=== PATIENT | female | born 1990 | race Caucasian/White ===

== ENCOUNTER 2018-02-27 05:22 | Inpatient (IN) | payer MEDICAID ==
[~2018-02-27] VITALS: Ht 157.5 cm; Wt 56.8 kg
[2018-02-27 05:36] VITALS: Ht 157.5 cm; Wt 56.8 kg
[2018-02-27 07:52] LABS: BASOPHIL % 0.2 % (0-2); PLATELET COUNT 221 x10^3mcL (130-400); RED CELL DISTRIBUTION WIDTH 12.8 % (11.5-14.5)
[2018-02-27 09:22] LABS: microscopic required? YES; urine erythrocyte NEGATIVE (NEGATIVE)
[2018-02-27 10:42] LABS: microscopic required? NO
[2018-02-27 11:14] LABS: UA SPECIFIC GRAVITY 1.015 (1.005-1.035); urine erythrocyte NEGATIVE (NEGATIVE)
[2018-02-27 13:13] LABS: BASOPHIL % 0.2 % (0-2); PLATELET COUNT 189 x10^3mcL (130-400); RED CELL DISTRIBUTION WIDTH 13.1 % (11.5-14.5)
[2018-02-27 15:11] VITALS: BP 101/54
[2018-02-27 16:13] VITALS: BP 99/51
[2018-02-27 16:28] LABS: AMYLASE 46 U/L (25-115); CALCIUM 7.9 mg/dL (8.5-10.1); CARBON DIOXIDE 21.5 mmol/L (21-32); CHLORIDE SERUM 101 mmol/L (98-107); CREATININE SERUM 0.5 mg/dL (0.6-1.0); GFR1 > 60 mL/min; GLUCOSE SERUM 90 mg/dL (74-106); LIPASE 77 IU/L (73-393); MAGNESIUM 1.7 mg/dL (1.8-2.4); PHOSPHOROUS 2.3 mg/dL (2.5-4.9); POTASSIUM SERUM 3.4 mmol/L (3.5-5.1); SODIUM SERUM 133 mmol/L (136-145)
[2018-02-27 16:32] LABS: CHOLESTEROL 119 mg/dL (<200); CHOLESTEROL/HDL RATIO 1.9; HDL CHOLESTEROL 62 mg/dL (40-60); TRIGLYCERIDES 23 mg/dL (<150)
[2018-02-27 16:33] LABS: T3 TOTAL 0.95 ng/mL
[2018-02-27 17:00] LABS: FREE T4 1.07 ng/dL (0.76-1.46); FREE THYROXINE INDEX 2.2 ug/dL (1.4-4.5); T4(THYROXINE) 6.6 ug/dL (4.7-13.3)
[2018-02-27 17:23] LABS: AMPHETAMINE QUAL UR NONE DETECTED (See below)
[2018-02-27 21:48] VITALS: BP 110/57
[2018-02-28 06:03] VITALS: BP 97/45
[2018-02-28 06:13] LABS: BASOPHIL % 0.1 % (0-2); PLATELET COUNT 188 x10^3mcL (130-400)
[2018-02-28 06:21] LABS: CALCIUM 8.2 mg/dL (8.5-10.1); CARBON DIOXIDE 21.5 mmol/L (21-32); CHLORIDE SERUM 105 mmol/L (98-107); CREATININE SERUM 0.5 mg/dL (0.6-1.0); GFR1 > 60 mL/min; GLUCOSE SERUM 89 mg/dL (74-106); MAGNESIUM 1.9 mg/dL (1.8-2.4); PHOSPHOROUS 2.7 mg/dL (2.5-4.9); POTASSIUM SERUM 3.7 mmol/L (3.5-5.1); SODIUM SERUM 136 mmol/L (136-145)
[2018-02-28 09:23] VITALS: BP 109/54
[2018-02-28 13:42] VITALS: BP 109/54
[2018-02-28 13:51] VITALS: BP 115/68
== END 2018-02-28 16:58 | disposition home or self-care (01) | DRG 566 ==
LOC: ED 05:22 → DU 14:17
PROVIDERS: Emergency Medicine; Family Medicine
DX: O26.891 Other specified pregnancy related conditions, first trimester (principal); E83.39 Other disorders of phosphorus metabolism; R10.30 Lower abdominal pain, unspecified; E87.1 Hypo-osmolality and hyponatremia; E87.6 Hypokalemia; E83.42 Hypomagnesemia; Z68.24 Body mass index [BMI] 24.0-24.9, adult; Z3A.01 Less than 8 weeks gestation of pregnancy
CPT/HCPCS: 84439; 87491; 87591; J0696; J2405; J2765; J7030